=== PATIENT | female | born 1980 | race Hispanic/Latino ===

== ENCOUNTER 2019-02-19 18:09 | Emergency (ER) | payer BC, OTHER ==
--- NOTE | 2019-02-19 18:20 | Event Note ---
ED Screening Note Date of service: 02/19/19 Time: 18:16 ED Screening Note: Patient report lower back pain with h/o chronic back pain. Pain radiating to RT lower extremities. Was on flexeril in the past. No lost of bowel or bladder Hysterectomy in the past. Reports that she was told that she has disc bulge and needs a MRI. This initial assessment/diagnostic orders/clinical plan/treatment(s) is/are subject to change based on patients health status, clinical progression and re- assessment by fellow clinical providers in the ED. Further treatment and workup at subsequent clinical providers discretion. Patient/guardian urged not to elope from the ED as their condition may be serious if not clinically assessed and managed. Initial orders include: UA
[2019-02-19 18:48] LABS: Bilirubin,Urine NEG (Negative); Blood,Urine NEG (Negative); Color,Urine Yellow (Yellow); Mucus,Urine FEW /HPF; Protein,Urine <15 mg/dL mg/dL (Negative); Urobilinogen,Urine < 2.0 mg/dL (<2.0); WBC,Urine < 1.0 /HPF (0.0-6.0)
[2019-02-19] MEDS ORDERED: DECADRON IM ONE (19:09)
[2019-02-19] MEDS ORDERED: TORADOL IM ONE (19:09)
[2019-02-19] MEDS ORDERED: ULTRAM PO ONE (19:10)
--- NOTE | 2019-02-19 19:14 | Emergency Department Report ---
ED Back Pain/Injury HPI - General Chief Complaint: Back Pain/Injury Stated Complaint: BACK PAIN Time Seen by Provider: 02/19/19 18:15 Source: patient Limitations: No Limitations - History of Present Illness Initial Comments: 38-year-old female with history of chronic back pain, status post back surgery several years ago, presents to ED with acute back pain. Patient states one month ago she visited an ER [id number] due to onset of back pain at that time. Patient reports history of left-sided sciatica, however now reports radiating pain into the right leg. States one month ago and her ER visit, she was advised to follow-up that she could obtain an MRI. Patient states she recently ran out of the pain medication that she was given at that ER visit, and is currently re questing more medication for pain and also an outpatient referral. Patient denies fever, bladder or bowel incontinence or retention. MD Complaint: back pain -: month(s) (1) Similar Symptoms Previously: Yes Radiation: left leg, right leg Severity: moderate Quality: sharp Consistency: constant Improves With: immobilization Worsens With: movement, sitting upright, walking Associated Symptoms: denies: difficulty urinating, incontinence, fever/chills, abdominal pain, nausea/vomiting - Related Data Home Medications Medication Instructions Recorded Confirmed Last Taken Gabapentin [Neurontin] 300 mg PO Q8H 07/24/14 05/05/15 Unknown Previous Rx's Medication Instructions Recorded Last Taken Type HYDROcodone/APAP 5-325 [[place] 1 each PO Q6HR PRN #14 tablet 05/05/15 Unknown Rx 5/325] Naproxen [Naprosyn] 500 mg PO BID #20 tablet 02/19/19 Unknown Rx methOCARBAMOL [Robaxin TAB] 500 mg PO Q8HR PRN #20 tablet 02/19/19 Unknown Rx predniSONE [Deltasone] 50 mg PO QDAY #5 tab 02/19/19 Unknown Rx traMADol [Ultram] 50 mg PO Q6HR PRN #7 tablet 02/19/19 Unknown Rx Allergies Allergy/AdvReac Type Severity Reaction Status Date / Time meperidine HCl [From Demerol] Allergy Unknown Verified 07/24/14 17:34 ED Review of Systems ROS: Stated complaint: BACK PAIN Other details as noted in HPI Comment: All other systems reviewed and negative Constitutional: denies: chills, fever Gastrointestinal: denies: abdominal pain Musculoskeletal: as per HPI Neurological: denies: weakness, numbness ED Past Medical Hx - Past Medical History Previous Medical History?: Yes Hx Asthma: Yes Additional medical history: Back problems, Bacterial Vaginosis, 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 - Surgical History Past Surgical History?: Yes Hx Cholecystectomy: Yes (2012) Additional Surgical History: Hysterectomy, back - Social History Smoking Status: Current Every Day Smoker Substance Use Type: Alcohol - Medications Home Medications: Home Medications Medication Instructions Recorded Confirmed Last Taken Type Gabapentin [Neurontin] 300 mg PO Q8H 07/24/14 05/05/15 Unknown History HYDROcodone/APAP 5-325 [[place] 1 each PO Q6HR PRN #14 tablet 05/05/15 Unknown Rx 5/325] Naproxen [Naprosyn] 500 mg PO BID #20 tablet 02/19/19 Unknown Rx methOCARBAMOL [Robaxin TAB] 500 mg PO Q8HR PRN #20 tablet 02/19/19 Unknown Rx predniSONE [Deltasone] 50 mg PO QDAY #5 tab 02/19/19 Unknown Rx traMADol [Ultram] 50 mg PO Q6HR PRN #7 tablet 02/19/19 Unknown Rx ED Physical Exam - General Limitations: No Limitations General appearance: alert, in no apparent distress - Head Head exam: Present: atraumatic, normocephalic - Eye Eye exam: Present: normal appearance - ENT ENT exam: Present: mucous membranes moist - Neck Neck exam: Present: normal inspection - Respiratory Respiratory exam: Present: normal lung sounds bilaterally. Absent: respiratory distress - Cardiovascular Cardiovascular Exam: Present: regular rate, normal rhythm - GI/Abdominal GI/Abdominal exam: Present: soft. Absent: distended, tenderness - Extremities Exam Extremities exam: Present: normal inspection - Back Exam Back exam: Present: paraspinal tenderness (right lower lumbar) - Neurological Exam Neurological exam: Present: alert, oriented X3. Absent: motor sensory deficit - Psychiatric Psychiatric exam: Present: normal affect, normal mood - Skin Skin exam: Present: warm, dry, intact, normal color ED Course Vital Signs 02/19/19 02/19/19 02/19/19 18:11 19:15 19:54 Temperature 98.2 F 98.0 F Pulse Rate 85 60 Respiratory 18 18 18 Rate Blood Pressure 138/82 Blood Pressure 110/71 [Left] O2 Sat by Pulse 98 100 Oximetry ED Medical Decision Making - Medical Decision Making Pt with hx of chronic back pain. No signs of cauda equina at this time. Pt w/ bilateral lumbar radiculopathy. Toradol, decadron, tramadol given here in ED. Vitals normal, will discharge at this time. Pt advised to f/u with ortho. Prescriptions given. Return precautions given. - Differential Diagnosis lumbar radiculopathy Critical care attestation.: If time is entered above; I have spent that time in minutes in the direct care of this critically ill patient, excluding procedure time. ED Disposition Clinical Impression: Lumbar radiculopathy Disposition: TO HOME OR SELFCARE Is pt being admited?: No Condition: Stable Instructions: Lumbar Radiculopathy (ED), Chronic Back Pain (ED) Prescriptions: predniSONE [Deltasone] 50 mg PO QDAY #5 tab Naproxen [Naprosyn] 500 mg PO BID #20 tablet methOCARBAMOL [Robaxin TAB] 500 mg PO Q8HR PRN #20 tablet PRN Reason: Muscle Spasm traMADol [Ultram] 50 mg PO Q6HR PRN #7 tablet PRN Reason: Pain Referrals: PRITESH AMADOR MD [Staff Physician] - 3-5 Days [facility] [Outside] - 3-5 Days [facility] [Outside] - 3-5 Days Forms: Work/School Release Form(ED) Time of Disposition: 19:14
[2019-02-19 19:55] VITALS: BP 110/71
== END 2019-02-19 20:15 | disposition home or self-care (01) ==
LOC: ED 18:09
DX: M54.16 Radiculopathy, lumbar region (principal); J45.909 Unspecified asthma, uncomplicated; F17.200 Nicotine dependence, unspecified, uncomplicated; Z90.710 Acquired absence of both cervix and uterus; Z90.49 Acquired absence of other specified parts of digestive tract; Z79.899 Other long term (current) drug therapy; Z88.8 Allergy status to other drugs, medicaments and biological substances
CPT/HCPCS: 81001; 96372; 99283; J1100; J1885